=== PATIENT | male | born 1975 | race Hispanic/Latino ===

== ENCOUNTER 2020-04-11 14:53 | Observation (INO) | payer OTHER ==
[~2020-04-11] VITALS: Ht 170.2 cm; Wt 95.8 kg
[2020-04-11] MEDS ORDERED: ONDANSETRON HCL INJ 2MG/ML 2ML 2 MG/ML VIAL IV ONE (15:30)
[2020-04-11] MEDS ORDERED: ASPIRIN 81 MG CHEW TAB PO ONE (15:30)
[2020-04-11] MEDS ORDERED: ACETAMINOPHEN 325 MG TAB PO ONE (15:30)
[2020-04-11] MEDS ORDERED: NITROGLYCERIN 2% OINT 1 GM PKT TOP ONE (15:30)
[2020-04-11] MEDS ORDERED: FAMOTIDINE 20 MG/2 ML VIAL IV ONE ×2 (15:30→17:37)
--- NOTE | 2020-04-11 15:32 | Emergency Department Note ---
History of Present Illnes History of Present Illness Chief Complaint: General Medicine Complaints History of Present Illness This is a 44 year old male Daydayino brought from [facility] for chest pain and abd pain, BP was high in the 200', EKG showed inferior ischemia. . Arrival Mode: Car EMS Treatment ABALONE DIVER: EKG Clay Artisan Required: No Onset (how long ago): day(s) Radiation: Reports abdomen Severity: moderate Onset quality: gradual Duration (how long): day(s) Progression: waxing and waning Relieving factors: none Exacerbating factors: none Associated symptoms: Reports chest pain, Reports other Treatments prior to arrival: none Past Medical/Family History Physician Review I have reviewed the patient's past medical and family history. Any updates have been documented here. Past Medical History Recent Fever: No Clinical Suspicion of Infectio: No New/Unexplained Change in Ment: No Past Medical History: None Past Surgical History: None Social History Smoking Cessation: Unknown if ever smoked Alcohol Use: Social Any Illegal Drug Use: No TB Exposure/Symptoms: No Physically hurt or threatened: No Other Any Pre-Existing Lines (PICC,: No Review of Systems Review of Systems Constitutional: Reports no symptoms EENTM: Reports no symptoms Cardiovascular: Reports chest pain Respiratory: Reports no symptoms Gastrointestinal: Reports no symptoms Genitourinary: Reports no symptoms Musculoskeletal: Reports no symptoms Integumentary: Reports no symptoms Neurological: Reports no symptoms Psychological: Reports no symptoms Endocrine: Reports no symptoms Hematological/Lymphatic: Reports no symptoms Physical Exam Related Data Allergies: Coded Allergies: No Known Allergies (Unverified , 04/11/20) Vital signs reviewed: Yes (BP is high) Physical Exam CONSTITUTIONAL Constitutional: Present well-developed, Present well-nourished HENT HENT: Present normocephalic, Present atraumatic, Present oropharynx clear/moist, Present nose normal HENT L/R: Present left ext ear normal, Present right ext ear normal EYES Eyes: Reports PERRL, Reports conjunctivae normal NECK Neck: Present ROM normal PULMONARY Pulmonary: Present effort normal, Present breath sounds normal CARDIOVASCULAR Cardiovascular: Present regular rhythm, Present heart sounds normal, Present ca pillary refill normal, Present normal rate GASTROINTESTINAL Abdominal: Present soft, Present nontender, Present bowel sounds normal GENITOURINARY Genitourinary: Present exam deferred SKIN Skin: Present warm, Present dry MUSCULOSKELETAL Musculoskeletal: Present ROM normal NEUROLOGICAL Neurological: Present alert, Present oriented x 3, Present no gross motor or sensory deficits PSYCHOLOGICAL Psychological: Present mood/affect normal, Present judgement normal Results Laboratory Lab results reviewed: Yes Laboratory comments CMN Imaging Imaging Comments no acute Procedures 12 Lead ECG Interpretation ECG Interpretation : ECG: ECG 1 Clay Artisan: Interpreted by ED physician Date: Apr 11, 2020 Time: 15:10 Rhythm: sinus rhythm Rate: normal QRS axis: normal T wave inversion: III Clinical Impression: myocardial ischemia Additional Comments inferior ischemia Critical Care Time Total Critical Care Time (min): 40 Time ED Physician saw patient: 14:35 Critcal care necessary due to: other (UNSTABLE ANGINA treated with Lovenox, nitro, IV pepcid, PO asa, discussed with clinical research assistant and attending) Critcal care time spent by me: develop tx plan w patient/surrogate, discussion w consultants, discussion w primary provider, evaluation patient response to tx, examination of patient, obtaining hx from patient/surrogate, order/perform tx or interventions, order/review laboratory studies, order/review radiographic studies, pulse oximetry Assessment & Plan Medical Decision Making MDM ACS Reassessment Reassessment time: 16:44 Reassessment BP is still high Assessment & Plan Final Impression: (1) Acute coronary syndromes (2) Ischemia Depart Disposition: ADMITTED Physician Attestation Provider Attestation patient has HTN, chest pain and very abnormal EKG, case discussed with Dr Shaikh in ER ZOE LUCAS MD Apr 11, 2020 15:32
--- NOTE | 2020-04-11 16:17 | Diagnostic Imaging Report ---
EXAMINATION: CXR 2 VIEW - HOPD INDICATION: Chest pain COMPARISON: None FINDINGS: LINES/TUBES:None LUNGS:The lungs are well-inflated. No focal consolidation or pulmonary edema. PLEURA:No pleural effusion or pneumothorax. MEDIASTINUM:The cardiomediastinal silhouette appears normal in size and shape. BONES/SOFT TISSUES:No acute osseous injury. ABDOMEN:No free air under the diaphragm. IMPRESSION: No focal pneumonia or pulmonary edema. Signed by: Urban Simon MD on 04/11/2020 4:13 PM
[2020-04-11] MEDS ORDERED: FAMOTIDINE 20 MG TAB PO SCH (16:30)
[2020-04-11] MEDS ORDERED: ACETAMINOPHEN 325 MG TAB PO PRN (16:30)
[2020-04-11] MEDS ORDERED: ONDANSETRON HCL INJ 2MG/ML 2ML 2 MG/ML VIAL IV PRN (16:30)
[2020-04-11] MEDS ORDERED: DIPHENHYDRAMINE HCL INJ 50 MG/ML VIAL IV PRN (16:30)
[2020-04-11] MEDS ORDERED: ENOXAPARIN SODIUM INJ 100 MG/ML SYR SC ONE (16:30)
[2020-04-11] MEDS ORDERED: ZOLPIDEM TARTRATE 5 MG TAB PO PRN (16:30)
[2020-04-11] MEDS: METOPROLOL TARTRATE 25 MG TAB PO SCH (17:35)
[2020-04-11] MEDS ORDERED: METOPROLOL TARTRATE 50 MG TAB ONE (17:36)
[2020-04-11] MEDS ORDERED: ASPIRIN 325 MG TAB ONE (17:36)
[2020-04-11] MEDS: NITROGLYCERIN 2% OINT 1 GM PKT TOP SCH (17:45)
[2020-04-11 18:34] LABS: CREATINE KINASE MB 0.8 ng/mL (0-5.0)
--- NOTE | 2020-04-11 18:50 | NUR ---
[facility] contacted at this time for transport to [facility] for admission. ETA 35-45 min.
--- NOTE | 2020-04-11 19:19 | NUR ---
Report and care hand off given to STEPHANIE Murphy.
--- NOTE | 2020-04-11 20:53 | NUR ---
Cardiology Consult Dictation# [id number]
[2020-04-11] MEDS ORDERED: DIAZEPAM 5 MG TAB PO ONE (21:00)
[2020-04-11 21:24] VITALS: BP 147/93
[2020-04-11 21:57] VITALS: BP 147/93
[2020-04-11 22:02] VITALS: BP 147/93
[2020-04-11] MEDS: LISINOPRIL 10 MG TAB PO SCH (22:05)
[2020-04-11] MEDS: SIMVASTATIN 40 MG TAB PO SCH (22:05)
--- NOTE | 2020-04-11 23:10 | Consultation ---
DATE OF CONSULTATION: 04/11/2020 Cardiology Consultation REQUESTING PHYSICIAN: Dr. Augustine. REASON FOR CONSULTATION: Chest pain, abnormal EKG, and high blood pressure. HISTORY OF PRESENT ILLNESS: This is a 44-year-old man. He denies significant past medical history, who was brought to the ER with elevated blood pressure and abnormal EKG. The patient reports he was in his usual state of health until 4 days prior when he developed abdominal pain. He describes it as burning and sharp 4/10 in severity in the center of his abdomen. He did not notice any association with p.o. intake. Due to the persistent pain, he was seen in the clinic. He was found to have significantly elevated blood pressure as well as an abnormal EKG, for which he was sent to the freestanding ER for further evaluation. Prior to arrival, he was given Carvasin (isosorbide dinitrate). However, his blood pressure did not improve. He denies any chest pain, shortness of breath, palpitations, edema, orthopnea, or PND. He states that prior to the onset of his abdominal pain, he would exercise 3 km on the treadmill every morning without symptoms. REVIEW OF SYSTEMS: Negative except as per HPI. PAST MEDICAL HISTORY: Denies. PAST SURGICAL HISTORY: None. SOCIAL HISTORY: No tobacco, alcohol, or illicit drugs. FAMILY HISTORY: Denies. PHYSICAL EXAMINATION: VITAL SIGNS: Temperature 98.4 degrees, pulse 74, respiratory rate 20, blood pressure 131/100, and oxygen saturation 100% on room air. GENERAL: Well-developed, well-nourished man, in no acute distress. HEENT: Normocephalic, atraumatic. Pupils equal. No scleral icterus. NECK: Supple. No thyroid or cervical lymphadenopathy. No carotid bruits. LUNGS: Clear to auscultation bilaterally. No wheezes or crackles. CARDIOVASCULAR: Normal rate, regular rhythm. No murmur. Normal S1, S2. ABDOMEN: Soft, nontender. EXTREMITIES: No edema. NEUROLOGIC: Nonfocal exam. LABORATORY DATA: Troponin 0.020. CK 96, CK-MB 0.8. EKG, normal sinus rhythm. T-wave abnormality, consider inferior ischemia. Chest x-ray, no focal pneumonia or pulmonary edema. IMPRESSION: 1. Abnormal EKG. 2. Elevated blood pressure. 3. Abdominal pain. RECOMMENDATIONS: Trend troponin to rule out myocardial infarction. Obtain echocardiogram. Exercise treadmill stress test in the morning to evaluate for ischemia. If testing is equivocal, the patient ruled out for myocardial infarction. He may return to work without further evaluation from a cardiac standpoint. Titrate antihypertensive therapy to achieve blood pressure control. Further evaluation of abdominal pain per primary. Thank you for this consult. We will continue to follow. Jen Shaikh MD ABS/MODL /[id number]
[2020-04-12] VITALS (8 sets, daily range): BP systolic 127–179; BP diastolic 86–112
[2020-04-12] MEDS: METOPROLOL TARTRATE 25 MG TAB PO SCH ×2 (00:48→16:26)
[2020-04-12 00:59] LABS: CHOL/HDL RATIO 18.6 (3.9-4.7)
[2020-04-12 01:11] LABS: CREATINE KINASE MB 0.6 ng/mL (0-5.0)
[2020-04-12] MEDS: NITROGLYCERIN 2% OINT 1 GM PKT TOP SCH ×4 (05:49→16:30)
--- NOTE | 2020-04-12 07:00 | NUR ---
BEDSIDE SHIFT REPORT RECEIVED PT IN STABLE CONDITION, R AC 20G NO SS OF INFILTRATION NOTED, UPDATED ON POC VOICED UNDERSTANDING, CALL LIGHT IN REACH WILL CONTINUE TO MONITOR
--- NOTE | 2020-04-12 07:12 | NUR ---
Bedside report and walking rounds completed with oncoming nurse. Patient in bed with call light within reach. No issues or concerns noted.
[2020-04-12] MEDS: FAMOTIDINE 20 MG TAB PO SCH ×2 (08:28→16:29)
[2020-04-12] MEDS: LISINOPRIL 10 MG TAB PO SCH ×2 (08:29→16:29)
[2020-04-12] MEDS ORDERED: ASPIRIN 325 MG TAB EC PO SCH (09:00)
[2020-04-12] MEDS ORDERED: LISINOPRIL 10 MG TAB PO SCH (09:00)
[2020-04-12 09:25] LABS: CREATINE KINASE MB 0.6 ng/mL (0-5.0)
--- NOTE | 2020-04-12 13:34 | NUR ---
H&P cc: chest discomfort HPI: 44yoM, a shipper receiver, developed epigastric discomfort after eating dinner, no dizziness/sob/chest pain. Admits to constipation. Came to hospital with findings of abnormal EKG. stress test done- nevative; pt now asymptomatic; ok for work and travel. PMH: Obesity, constipation, white coat HTN PSx: none [place]; see emr Fh/SH; ; no cigs/etoh; works on [employer]; see MAR ROS: no f/c/s/n/V/D/GARZA/cp/sob/skin rash/confusion/focal limb weakness V/S revd PE tired appearing anicteric ns1s2; no m mod bs soft nt nd no e/t skin dry n. affect a&ox3; eddy labs/meds revd A/P: 44yoM Constipation- bowel reg Hypertensive emergency- BB/aceI; f/u stress test; LVEF 65%; ABnormal EGK- T inverted in lead 3, f/u stress test= normal ; Obesity- screen for DM BMI 33- as above Prop: lovenox; pepcid dispo; d/c back to work on BP meds and constipation/GERD meds. OK for work tomorrow; Marcus Cadet MD, PHD.
[2020-04-12 16:05] LABS: BASOPHILS # (AUTO) 0.1 (0.0-0.1); BASOPHILS % 1.2 % (0.0-1.0); EOSINOPHILS # (AUTO) 0.1 (0.0-0.4); EOSINOPHILS % 1.2 % (0.0-6.0); HEMATOCRIT 47.5 % (38.2-49.6); HEMOGLOBIN 15.3 g/dL (14.0-18.0); LYMPHOCYTES # (AUTO) 1.5 (1.0-3.2); LYMPHOCYTES % 12.9 % (18.0-39.1); MEAN CORPUSCULAR HEMOGLOBIN 27.6 pg (28-32); MEAN CORPUSCULAR HGB CONC 32.2 g/dL (31-35); MEAN CORPUSCULAR VOLUME 85.6 fL (81-99); MONOCYTES % 8.5 % (4.4-11.3); NEUTROPHILS # (AUTO) 8.5 (2.1-6.9); NEUTROPHILS % 75.5 % (38.7-80.0); PLATELET COUNT 279 x10e3/uL (140-360); RED BLOOD COUNT 5.55 x10e6/uL (4.3-5.7)
[2020-04-12 16:25] LABS: ANION GAP 14.3 mmol/L (8-16); BLOOD UREA NITROGEN 13 mg/dL (7-26); BUN/CREATININE RATIO 10 (6-25); CALCIUM 9.7 mg/dL (8.4-10.2); CARBON DIOXIDE 25 mmol/L (22-29); CHLORIDE 100 mmol/L (98-107); CREATININE, SERUM 1.27 mg/dL (0.72-1.25); EST GLOMERULAR FILTRATION RATE > 60 ML/MIN (60-); GLUCOSE 107 mg/dL (74-118); POTASSIUM 3.3 mmol/L (3.5-5.1); SODIUM 136 mmol/L (136-145)
--- NOTE | 2020-04-12 17:45 | NUR ---
D/C summary Principal Dx: Constipation- bowel reg Hypertensive emergency- BB/aceI; f/u stress test; LVEF 65%; ABnormal EGK- T inverted in lead 3, f/u stress test= normal ; Secondary Dx: Obesity- screen for DM BMI 33- as above Prop: lovenox; pepcid dispo; d/c back to work on BP meds and constipation/GERD meds. OK for work tomorrow; d/c back to work and ok for travel stable d/c>35mins f/u pcp 1 week Marcus Cadet MD, PHD.
[2020-04-12] MEDS ORDERED: COLACE100 MG PO (17:49)
[2020-04-12] MEDS ORDERED: SIMVASTATIN40 MG PO (17:49)
[2020-04-12] MEDS ORDERED: PANTOPRAZOLE SO40 MG PO (17:49)
[2020-04-12] MEDS ORDERED: LISINOPRIL10 MG PO (17:49)
[2020-04-12] MEDS ORDERED: SENNA LAX8.6 MG PO (17:49)
[2020-04-12] MEDS ORDERED: LOPRESSOR25 MG PO (17:49)
[2020-04-12] MEDS ORDERED: ASPIR 8181 MG PO (17:50)
--- NOTE | 2020-04-12 18:11 | NUR ---
perscriptions given to mellissa from [facility] to be filler prior to pt being discharge,
[2020-04-12] MEDS ORDERED: NIFEDIPINE CR 30 MG TAB PO SCH (18:15)
[2020-04-12] MEDS ORDERED: ALPRAZOLAM 0.25 MG TAB PO ONE (18:15)
[2020-04-12] MEDS ORDERED: HYDROCHLOROTHIAZIDE 25 MG TAB PO ONE (18:15)
--- NOTE | 2020-04-12 19:02 | NUR ---
WALKING ROUNDS PERFORMED, RECEIVED PT LAYING SEMI FOWLERS IN BED, AAOX3, RR EVEN AND NON-LABORED, ON ROOM AIR. NO S/SX OF DISTRESS NOTED. LEFT PT LAYING SEMI FOWLERS IN BED, BED IN LOW LOCKED POSITION, SIDE RAILS UPX2, CALL LIGHT AND PHONE WITHIN REACH.
--- NOTE | 2020-04-12 19:15 | NUR ---
SHIFT REPORT GIVEN TO ONCOMING NIGHT NURSE PT IN STABLE CONDITION, CALL LIGHT IN REACH
--- NOTE | 2020-04-12 20:06 | NUR ---
SPOKE WITH MD SEYMOUR REGARDING PT BLOOD PRESSURE AT 165/104, NEW ORDERS RECEIVED.
[2020-04-12] MEDS: SIMVASTATIN 40 MG TAB PO SCH (20:14)
[2020-04-12] MEDS ORDERED: ALPRAZOLAM 0.5 MG TAB PO ONE (20:25)
--- NOTE | 2020-04-12 20:26 | NUR ---
IV TO (R) AC DISCONTINUED. CATHETER TIP INTACT, PRESSURE AND DRESSING APPLIED.
--- NOTE | 2020-04-12 20:36 | NUR ---
PT TRANSPORTED BY WHEELCHAIR TO [facility] WITH [facility] AT SIDE FOR TRANSPORT. PT IS AFEBRILE AND NO S/SX OF DISTRESS NOTED.
== END 2020-04-12 20:36 | disposition home or self-care (01) ==
LOC: FSED 14:53 → ERHOLD 16:29 → MED/SURG 21:24
PROVIDERS: ADMIT Internal Medicine; ATTEND Internal Medicine
DX: K59.00 Constipation, unspecified (principal); R94.31 Abnormal electrocardiogram [ECG] [EKG]; I16.1 Hypertensive emergency; I24.9 Acute ischemic heart disease, unspecified; I10 Essential (primary) hypertension; E66.9 Obesity, unspecified; Z68.33 Body mass index [BMI] 33.0-33.9, adult
CPT/HCPCS: 36415 ×2; 71046; 78452; 80048; 80053; 80061; 82550 ×2; 82553 ×2; 84484 ×2; 85025 ×2; 85379; 87635; 93005; 93017; 93306; 99284; A9502; G0378 ×2; J1650